=== PATIENT | female | born 2005 | race African-American/Black ===

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

== ENCOUNTER 2023-10-24 15:19 | Emergency (ER) | payer BC ==
[2023-10-24 15:47] VITALS: BP 127/89; PULSE 87; RESP 18; TEMP 98.5; BMI 18.6
== END 2023-10-24 17:00 | disposition home or self-care (01) ==
LOC: JERFT 15:19
DX: S00.81XA Abrasion of other part of head, initial encounter (principal); S20.319A Abrasion of unspecified front wall of thorax, initial encounter; Y04.0XXA Assault by unarmed brawl or fight, initial encounter; Y99.0 Civilian activity done for income or pay
CPT/HCPCS: 99283-25